=== PATIENT | female | born 1945 | race Caucasian/White ===

== ENCOUNTER → 2019-08-09 10:38 | Outpatient (CLI) | payer MEDICARE, OTHER, SELFPAY ==
--- NOTE | 2019-08-09 | DI.RAD.S_ITS ---
PROCEDURE: XR LUMBAR SPINE 6V W BENDING INDICATIONS: BACK PAIN TECHNIQUE: 7 views of the lumbar spine acquired. COMPARISON: None. FINDINGS: Bones: No fracture or focal osseous destruction. Multilevel degenerative endplate sclerosis and spurring. Diffuse facet arthropathy. Moderate diffuse lumbar disc space narrowing. Severe dextroscoliosis. Severe right hip joint degeneration. Mild left hip degenerative joint disease. No definite pars defects although severely limited in evaluation due to discogenic changes. Grade 1 retrolisthesis of L3 on L4. No evidence of abnormal motion with dynamic flexion and extension lateral views. Soft tissues: Overlying bowel gas pattern is normal. No suspicious soft tissue calcifications. Vascular calcifications IMPRESSION: Suboptimal evaluation due to advanced discogenic changes and scoliosis Dextroscoliosis. Moderate-severe diffuse lumbar spondylosis and facet arthropathy No evidence of abnormal motion with dynamic flexion and extension lateral views. Dictated by: Can George M.D. on 08/09/2019 at 12:04 Approved by: Can George M.D. on 08/09/2019 at 12:35
== END ==
PROVIDERS: PCP Family Medicine; Referring Provider Family Medicine; Visit Provider Family Medicine
DX: M54.9 Dorsalgia, unspecified (principal); M47.816 Spondylosis without myelopathy or radiculopathy, lumbar region; M47.817 Spondylosis without myelopathy or radiculopathy, lumbosacral region; M41.9 Scoliosis, unspecified; M16.0 Bilateral primary osteoarthritis of hip
CPT/HCPCS: 20611; 72114; 99214; J0702

== ENCOUNTER → 2020-03-08 12:11 | Outpatient (CLI) | payer MEDICARE, OTHER, SELFPAY ==
[2020-03-08 12:57] LABS: Add Manual Diff / Slide Review NO; Basophils Absolute Auto 100 /uL (0-100); Basophils Percent Auto 0.7 % (0-2); Eosinophils Absolute Auto 200 /uL (0-450); Eosinophils Percent Auto 2.2 % (2-4); Hematocrit 39.9 % (36-46); Hemoglobin 13.1 g/dL (12.0-16.0); Lymphocytes Absolute Auto 2600 /uL (1100-4500); Lymphocytes Percent Auto 32.1 % (25-40); Mean Corpuscular HGB Conc 32.9 % (30-36); Mean Corpuscular Hemoglobin 31.1 PG (26-34); Mean Corpuscular Volume 94.6 fL (80-100); Monocytes Absolute Auto 600 /uL (0-900); Monocytes Percent Auto 7.2 % (3-14); Neutrophils Absolute Auto 4700 /uL (1500-7000); Neutrophils Percent Auto 57.8 % (50-75); Platelet Count 226 X10^3/uL (150-400); Red Blood Cell Count 4.22 X10^6/uL (4.0-5.2); Red Cell Distribution Width 13.1 % (11.6-14.8); White Blood Cell Count 8.2 X10^3/uL (4.5-11.0)
== END ==
PROVIDERS: PCP Family Medicine; Referring Provider Orthopaedic Surgery; Visit Provider Orthopaedic Surgery
DX: Z01.818 Encounter for other preprocedural examination (principal); Z01.812 Encounter for preprocedural laboratory examination
CPT/HCPCS: 36415; 85025; 93005

== ENCOUNTER → 2020-03-24 13:14 | Outpatient (CLI) | payer MEDICARE, OTHER, SELFPAY ==
[2020-03-25 13:15] LABS: COVID19 Sendout Not Detected (Not Detect)
== END ==
PROVIDERS: PCP Family Medicine; Visit Provider Nurse Practitioner
DX: Z01.812 Encounter for preprocedural laboratory examination (principal)
CPT/HCPCS: 87635

== ENCOUNTER 2020-03-27 10:32 | Day surgery (SDC) | payer MEDICARE, OTHER, SELFPAY ==
[2020-03-21 08:49] VITALS: BMI 23.3
[2020-03-27] VITALS (12 sets, daily range): BP systolic 111–138; BP diastolic 43–84; PULSE 60–83; RESP 10–18; TEMP 35.8–36.6; O2SAT 94–100; BMI 23.7
--- NOTE | 2020-03-27 06:00 | DI.RAD.S_ITS ---
PROCEDURE: XR PELVIS 1-2V COMPARISON: None. INDICATIONS: post op FINDINGS: Views of the right hip demonstrate postoperative changes of total hip replacement. There is no perihardware lucency or other hardware abnormalities. Postoperative soft tissue changes are seen. IMPRESSION: Postoperative changes of total right hip replacement. Dictated by: Eric Beaver M.D. on 03/27/2020 at 15:18 Approved by: Eric Beaver M.D. on 03/27/2020 at 15:19
[2020-03-27] MEDS: ACETAMINOPHEN 325 MG TABLET 975 MG PO (11:01)
[2020-03-27] MEDS: PREGABALIN 75 MG CAPSULE PO (11:01)
[2020-03-27] MEDS: CELECOXIB 200 MG CAPSULE PO (11:01)
[2020-03-27] MEDS: LACTATED RINGERS 1,000 ML 42 ML IV (12:00)
--- NOTE | 2020-03-27 12:43 | PM.PREOP ---
Pre-operative Note COVID-19 COVID-19 status: Negative Result date/Date tested (Pos, Neg/Pending): 03/25/20 Interval Note History & Physical reviewed/Exam performed by Physician: Yes Changes to H&P: No
[2020-03-27] MEDS: CLINDAMYCIN 600 MG/50 ML PIGGYBACK 50 MG IV (13:20)
--- NOTE | 2020-03-27 13:54 | SUR.OPER ---
Lateral on padded OR bed. Gel axillary roll. Arms secured on padded armboard with pillow supporting top arm. Padded hip positioner braces x4 - anterior and posterior chest and pelvis. Additional gel pad used anterior pelvis. Gel pad under bottom leg from knee to foot and secured with tape over sheet.
[2020-03-27] MEDS: KETOROLAC 30 MG/ML VIAL IV (14:04)
[2020-03-27] MEDS: ROPIVACAINE 0.5% PF 5 MG/ML 20ML VIAL 60 ML INJ (14:04)
[2020-03-27] MEDS: MORPHINE 4 MG/ML INJ INJ (14:05)
[2020-03-27] MEDS: TRANEXAMIC ACID 1,000 MG VIAL 2000 MG INJ ×2 (14:05→14:21)
--- NOTE | 2020-03-27 14:48 | PM.OP.1 ---
Operative Date/Time/Diagnoses Date of procedure: 03/27/20 Time of procedure: 14:48 Pre-op diagnosis: Right hip degenerative joint disease Post-op diagnosis: same Procedure & Clinicians Procedure: Right total hip arthroplasty (CPT code 45719 with election assistant) Same procedure as scheduled: Yes Indications: Patient is an 74-year-old female with severe right hip DJD. The patient has pain with activities and at rest, limited ambulation and activity tolerance, difficulties with ADLs, and failure of conservative treatment. We have discussed the nature of condition, treatment options, risks and benefits, and patient elects to proceed with total hip arthroplasty and gives informed consent. Surgeon: Waldemar Goodman Advertising Teacher: Mic Martin Anesthesia Type: General and Spinal Operative Notes Closure Type: primary Specimen(s): none sent Prosthetic devices, grafts, tissues, transplants, or devices: Acetabulum: [employer] R3 acetabular component size 52 mm Femoral component: [employer]hew Anthology stem size 6 with standard offset Femoral head: 36 mm + 0 cobalt chrome Estimated Blood Loss (mL): 100 Blood products transfused: none Procedure in detail: After satisfaction induction of anesthetic, and administration of IV antibiotics, the patient was positioned in the lateral decubitus position with all bony prominences well padded and pelvic position secured using a hip technology program manager positioning device. Right hip and lower extremity prepped and draped in the usual sterile fashion, 1st dose of intravenous tranexamic acid was administered, then a longitudinal incision was created centered over the greater trochanter and carried sharply through the skin and subcutaneous tissues down to the fascia dieudonne which was divided longitudinally and retracted with a Charnley retractor. External rotators visualize, cut, tagged, and retracted posteriorly, then the capsule was cut in a T-type fashion with the corners tagged and retracted. Hip was dislocated and femoral neck cut made according to preoperative templating. Acetabular retractors then placed, and the acetabular labrum and osteophytes were excised. The acetabulum was then sequentially reamed to 51 mm with an excellent circumferential ream and fit with the trial. The trial component was removed and a permanent size 52 mm John and Nephew R3 acetabular component was selected, positioned, and impacted with satisfactory position and fixation achieved. Permanent liner was then inserted with the elevated lip directed posteriorly. Soft tissue then removed off the lateral femoral neck in the lateral neck was entered using a box osteotome. T-handled reamers placed down the canal followed by sequential broaching to 6 with the final broach left in place for trial reduction which demonstrated excellent leg length, range of motion, and stability characteristics with a 36 mm +0 trial ball. The trial and broach were removed, and a permanent size 6 John [employer] Nephew Anthology stem was selected and inserted with excellent position and fixation achieved. Another trial reduction yielded the above characteristics so the trial ball was exchanged for a permanent 32 mm +0 cobalt chrome ball. The hip was irrigated and reduced and excellent leg length range of motion and stability characteristics were achieved and maintained. Periarticular tissues were infiltrated with ropivacaine, morphine, and Toradol. The hip was copiously irrigated, and the capsule repaired with #2 Ethibond, and the piriformis was repaired back to the greater trochanter with the same. Fascia dieudonne closed with interrupted #1 Ethibond sutures, and the subcutaneous tissues were closed in 2 layers of 0 Vicryl and 2 0 Vicryl. Skin was closed with a ZipLine closure and sterile dressings applied. Second dose of tranexamic acid was administered intravenously, and the anesthetic was terminated. Complications: none Post-operative Condition: stable Disposition: PACU Plan for aftercare: Patient will be admitted to the acute care duval, and anticipate discharge on postop day 1 with follow-up in office in 10-14 days. Outpatient physical therapy will be arranged and patient will continue to observe posterior hip precautions. Patient will continue use of postoperative aspirin for DVT prophylaxis postop.
[2020-03-27] MEDS: LACTATED RINGERS 1,000 ML 125 ML IV (17:35)
[2020-03-27] MEDS: ACETAMINOPHEN 325 MG TABLET 650 MG PO (20:13)
[2020-03-27] MEDS: DOCUSATE 100 MG CAPSULE PO (20:13)
[2020-03-27] MEDS: ASPIRIN EC 81 MG TABLET PO (20:13)
[2020-03-27] MEDS: OXYCODONE IR 5 MG TABLET PO (22:26)
[2020-03-28] MEDS: LACTATED RINGERS 1,000 ML 125 ML IV (00:22)
[2020-03-28 03:50] VITALS: BP 139/52; PULSE 64; RESP 18; TEMP 36.6; O2SAT 92
[2020-03-28] MEDS: OXYCODONE IR 5 MG TABLET PO ×3 (04:26→13:21)
[2020-03-28 06:01] LABS: Hematocrit 34.5 % (36-46); Hemoglobin 11.3 g/dL (12.0-16.0)
--- NOTE | 2020-03-28 07:44 | P.PN_ITS ---
Subjective Subjective Date Patient Seen: 03/28/20 Time Patient Seen: 07:44 Interval history: POD #1 s/p R ALONDRA with Dr. Goodman. Her pain is well controlled with Oxycodone. She is voiding. She has not been up with PT yet. Exam Vital Signs (past 8 hours): - 03/28/20 03:50 Temperature 97.9 F Pulse Rate 64 Respiratory Rate 18 Blood Pressure 139/52 L Pulse Oximetry 92 Oxygen Delivery Method CPAP Oxygen Flow Rate 0 Narrative Exam Narrative: Patient lying in bed in NAD. She is alert and oriented X3. Dressing on right hip is CDI. Calves are soft, compressible, and nontender bi laterally. SILT throughout BLEs. DP 2+ and symmetrical. Objective Labs Result Diagrams: 03/28/20 05:44 Labs: Laboratory Results - last 24 hr 03/28/20 05:44 Hgb 11.3 L Hct 34.5 L Assessment & Plan Post-op Postoperative Procedures: Procedures Operation Date: 03/27/20 12:45 Actual Procedures Side Surgeon p Total Hip Arthroplasty Right Waldemar Goodman MD Patient will mobilize with PT today. Continue current pain control. If patient mobilizing safely with adequate pain control she could DC home today.
[2020-03-28] MEDS: ASPIRIN EC 81 MG TABLET PO (09:29)
[2020-03-28] MEDS: DOCUSATE 100 MG CAPSULE PO (09:29)
[2020-03-28] MEDS: ACETAMINOPHEN 325 MG TABLET 650 MG PO ×2 (09:29→13:22)
[2020-03-28 09:30] VITALS: BP 135/58; PULSE 75; RESP 18; TEMP 36.7; O2SAT 97
--- NOTE | 2020-03-28 09:51 | PT.IIE ---
Current Diagnoses Unilateral primary osteoarthritis, right hip (03/27/20) Surgery Performed Operation Date: 03/27/20 12:45 Actual Procedures p Total Hip Arthroplasty(Right) - Waldemar Goodman MD Surgical History (Last Updated 03/21/20 @ 09:20 by Val Thayer RN) H/O total ankle replacement (Acute) History of arthroplasty of left knee (Acute) History of biopsy (Acute) History of section (Acute) Hx of tonsillectomy (Acute) Medical History (Last Updated 03/21/20 @ 09:20 by Val Thayer RN) Degenerative joint disease of right hip (Acute) Facet arthropathy, lumbosacral (Acute) Former smoker (Acute) Hearing impaired (Acute) Scoliosis (Acute) Sleep apnea (Acute) Physical Therapy Inpatient Evaluation/Re-Eval M1 PT/OT-IP Prior Functional Status Start: 03/28/20 11:27 Freq: NEEDED Status: Active Protocol: Document 03/28/20 09:51 AB (Rec: 03/28/20 11:40 AB [id number]) Medical Review Prior Functional Status Medical History Reviewed Yes Communication able to make needs known but with confusion Mobility and Gait stated that she is independent with all mobilities and ambulation wtihout AD indoors but uses a hiking pole for long distance ambulation Prior Functional Level (Other details) most of the info regarding PLOF and home set up were provided by the pt's spouse Social History Household Members none Living Arrangements House Number of Floors (Floors) Two Floors Number of Stairs To Enter/Railing? pt stays on main level of the house has 2 platform steps to enter the house Home Environment Standard Height Toilet,Walk in Shower Home Equipment Front Wheel Walker,Raised Toilet Seat w/Armrests,Shower Seat without Backrest,Hand Held Shower,Grab Bars Near Toilet,Grab Bars In Shower Additional Social History Comment spouse lives in [place] but will stay with pt for 2 weeks and stated that if he has to stay longer, he can make arrangements has hiking poles M2 PT-IP Current Condition Start: 03/28/20 11:27 Freq: NEEDED Status: Active Protocol: Document 03/28/20 09:51 AB (Rec: 03/28/20 11:40 AB [email or web address]) Physical Therapy Current Condition Current Condition Evaluation Date 03/28/20 Treatment Diagnosis s/p R ALONDRA posterior approach; difficulty in walking Onset Date 03/27/20 Precautions Posterior Hip Precautions No Hip Flexion > 90 degrees,No Hip Internal Rotation,No Hip Adduction Weight Bearing Status Weight Bearing Status Weight Bear as Tolerated Allowed Weight Bearing Amount (enter % WBAT RLE or #) (%) M3 PT-IP Subjective Start: 03/28/20 11:27 Freq: NEEDED Status: Active Protocol: Document 03/28/20 09:51 AB (Rec: 03/28/20 11:40 AB [id number]) Subjective Physical Therapy Visit Type Type Initial Evaluation Visit Start Time 09:51 Visit Stop Time 11:00 Total Visit Minutes 69 Number of ELECTRON BEAM OPERATOR Visits 0 Physical Therapy Visit Comments Patient Comments pt is agreeable to do PT. spouse in room with pt. Therapy Pain Assessment Pain When Pain Assessed At Rest Pain Present Pain Present Pain Reported Location right hip Intensity 4 Scale Used Numeric (0 - 10) Pain Management Techniques Modification of Treatment,Re- positioning,Timing of Activity with Medications M4 PT-IP Mobility and Gait Start: 03/28/20 11:27 Freq: NEEDED Status: Active Protocol: Document 03/28/20 09:51 AB (Rec: 03/28/20 11:40 AB [id number]) PT-Bed Mobility Assessment Supine to Sit Supine to Sit Standby Assistance PT-Transfer Assessment Sit to and From Stand Sit to and from Stand Contact Guard Assistance,1 Person Assistance,Use of Upper Extremities Equipment Transfer Assistive Device Gait Belt,Front Wheeled Walker Orthotic/Prosthetic Devices or Brace: No Transfers Transfer Destination Toilet Transfer Technique ambulated using FWW Transfer Ability Level of Assist Contact Guard Assistance,1 Person Assistance,Use of Upper Extremities Comments Mobility Comments educated pt regarding R hip posterior precautions. pt unable to recall and requires max cues with all tasks. spouse stated that he will remind pt. pt completed supine to sit SBA and completed sit to stand from EOB CGA and cues to maintain hip precautions. pt ambulated using FWW to the toilet CGA. required CGA for sit to stand from the toilet and ambulated towards the sink using FWW CGA. pt was able to maintain standing balance CGA during handwashing. ambulated to the chair. caregiver training conducted. educated spouse on how to use safety belt and how to assist pt. spouse was able to put safety belt on. assisted pt with transfers and ambulation using FWW and apppropriately cued pt. pt ambulated towards the stair using FWW CGA with spouse assisting. completed up/down steps using FWW CGA to min A and cues. spouse was able to assist pt. pt ambulated back to her room using FWW CGA and agreed to sit up on chair. positioned on chair. call light and table placed within reach. educated pt and spouse on car transfers. Pt and spouse without any further concerns. Gait Assessment Gait Gait Assistance Required: Contact Guard Assist Distance (Feet) 125 Able to Maintain Weight Bearing Status Yes During Gait Assistive Devices Assistive Device Gait Belt,Front Wheeled Walker Gait Deviations General Gait Pattern Antalgic,Decreased Stride Length,Decreased Feet Clearance Factors Limiting Gait Function Factors Limiting Gait Function Decreased Activity Tolerance, Decreased Strength,Difficulty Following Directions,Limited Range of Motion,Pain,Poor Balance,Poor Safety Awareness Comments Gait Comments pls refer to mobility section for details Stair Climbing Assessment Evaluation Level of Assist On Stairs Contact Guard Assistance, Minimal Assistance Devices Stair Climbing Assistive Devices Front Wheel Walker Technique/Endurance Stair Climbing Direction Ascend and Descend Stair Climbing Technique Step to Step Number of Steps Climbed 1 Query Text: Stair Climbing Set # Repetitions (reps) 2 Comments Stair Climbing Comments pls refer to mobility section for details PT-Balance Assessment Sitting Balance and Reactions Static Sitting Balance Ability Good Dynamic Sitting Balance Ability Good Standing Balance and Reactions Static Standing Balance Ability Fair Dynamic Standing Balance Ability Fair Device Used FWW M5 PT-IP Objective Assessments Start: 03/28/20 11:27 Freq: NEEDED Status: Active Protocol: Document 03/28/20 09:51 AB (Rec: 03/28/20 11:40 AB [email or web address]) Orientation Orientation/Cognition Level of Alertness Alert Orientation Name Safety Awareness Decreased Safety Awareness Memory Description Short Term Impaired,Alf Impaired Gross Range of Motion Lower Extremity ROM Assessment Within Functional Limits Strength Lower Extremity Strength Assessment Right Impaired Hip 3+/5 Knee 4-/5 Coordination Assessment Gross Coordination Gross Coordination WNL Sensation Assessment Sensation Gross Sensation WNL Muscle Tone Muscle Tone WNL Yes M6 PT-IP Treatment Start: 03/28/20 11:27 Freq: NEEDED Status: Active Protocol: Document 03/28/20 09:51 AB (Rec: 03/28/20 11:40 AB [email or web address]) Physical Therapy Treatment Education Education Provided Precautions,Weight Bearing Status,Post-Op Packet,Safety M7 PT-IP Assessment and Plan Start: 03/28/20 11:27 Freq: NEEDED Status: Active Protocol: Document 03/28/20 09:51 AB (Rec: 03/28/20 11:40 AB [id number]) PT Summary Assessment and Plan Potential Rehabilitation Potential Good Status of Condition at Evaluation Stable Summary Impairments Pain,ROM,Strength,Balance, Coordination,Sensation,Tone, Cognition,Bed Mobility, Transfers,Gait,Activity Tolerance Assessment Summary pt requiring CGA to min A with mobility and spouse will assist pt at home. caregiver training conducted and spouse was able to assist and cue pt safely. pt plans to go home later today and stated that she is set up for outpt PT. pt may go home when medically stable. Goals Bed Mobility Goal Independent Transfer Goal Independent,Front Wheeled Walker Gait Goal Standby Assistance,Front Wheel Walker Gait Distance 250 Other Goals up/down 1 step using FWW SBA Days to Meet Goals 5 Frequency of Treatment Frequency Of Treatment Twice a Day Treatment Plan Physical Therapy Treatment Plan Bed Mobility Training,Transfer Training,Gait Training, Therapeutic Exercise,Balance Retraining,Post Op Education, Discharge Planning,Hot or Cold Pack,Neuromuscular Re-ed, Coordination Retraining,Manual Therapy Recommendations To Nursing Amount of Assist Needed 1 Person Assist Discharge Recommendations PT Discharge Recommendations Home with 14/12 Assist, Outpatient PT Transportation Needs at Discharge Private Vehicle
--- NOTE | 2020-03-28 13:19 | PC.NURSE ---
Day shift: Paperwork singed and all questions answered. Pt has all personal belongings. Pt's spouse had scripts filled already. Medicated for pain per MAR just prior to d/c. Taken to car in by NEGRITA Nicolas. Pt and her spouse staying in hotel in [facility] and will go back to [facility] tomorrow. Hip dressing remains CDI.
--- NOTE | 2020-03-28 14:09 | PC.NURSE ---
Day shift: Pt off unit at approx 1355.
--- NOTE | 2020-03-28 15:23 | CM.IDA ---
Initial DCP Assessment Note Pt is a 74 yo female, resident of [facility], now POD#1 from Rt hip surgery w/ Dr Goodman PCP: Dayday Hayward Payer: [facility] Reviewed chart, pt discussed in multidisciplinary rounds this morning. Therapy has cleared pt for return home w/family to assist and pt has planned for home, DC order from Ortho has already been initiated this morning. Met w/patient to introduce role. Patient in good spirits this morning, explains she will be going home w/her to assist, this afternoon. Patient denies needs from this RELATIONSHIP MANAGER. P: DC home w/spouse, outpt PT, no needs from this RELATIONSHIP MANAGER RONAL Contreras
== END 2020-03-28 14:09 | disposition home or self-care (01) ==
LOC: OR 10:36 → AC 10:37
PROVIDERS: PCP Family Medicine; Referring Provider Family Medicine; Visit Provider Orthopaedic Surgery
PROC: 0SR90JZ Replacement of Right Hip Joint with Synthetic Substitute, Open Approach (ICD-10-PCS; CPT 27130; principal; 2020-03-27 12:45)
DX: M16.11 Unilateral primary osteoarthritis, right hip (principal)
CPT/HCPCS: 27130; 36415; 72170; 85014; 85018; 97161; 97530; C1776; J1885; J2250; J2270; J2274; J2704; J3010

== ENCOUNTER → 2020-09-06 11:38 | Outpatient (CLI) | payer MEDICARE, SELFPAY ==
[2020-03-27 16:23] VITALS: BMI 23.7
--- NOTE | 2020-09-06 11:44 | DI.MRI.S_ITS ---
PROCEDURE: MR KNEE RT WO CON INDICATIONS: Unspecified internal derangement of right knee TECHNIQUE: Noncontrast sagittal PD fast spin echo and T2 fast spin echo with fat saturation, sagittal 3-D FLASH with fat saturation; coronal T1 spin echo and PD fast spin echo with fat saturation, and axial PD fast spin echo with fat saturation through the knee. COMPARISON: None. FINDINGS: Image quality: Excellent. Menisci: Oblique tear involving posterior horn of medial meniscus is seen extending to inferior articulating surface. Lateral meniscus is intact. The meniscal root ligaments appear intact. Cruciate ligaments: The anterior and posterior cruciate ligaments appear intact. Medial structures: Moderate grade MCL sprain/partial-thickness tear is seen with significant surrounding edema.. The posterior oblique ligament, semimembranosus tendon insertions, oblique popliteal ligament, and meniscocapsular junction appear intact. Visualized portions of the pes anserinus tendons appear normal. No abnormal bursal fluid. Lateral structures: The lateral collateral ligament, long and short heads of the biceps femoris tendon appear intact. The popliteus tendon appears normal; the popliteofibular ligament appears intact. The posterosuperior and anteroinferior popliteomeniscal fascicles appear intact. The arcuate and fabellofibular ligaments appear intact, on either side of the lateral inferior geniculate artery. Iliotibial band appears normal. Anterior structures: The quadriceps and patellar tendons appear intact. Patellar alignment is normal. No femoral trochlear dysplasia or ventral trochlear prominence. No edema in the infrapatellar fat pad. Bones and cartilage: Mild to moderate tricompartmental osteoarthritis and chondromalacia is seen more prominent in medial femoral tibial compartment. No fracture or dislocation. No marrow edema. Joint space: There is moderate amount of joint fluid. A lobulated popliteal cyst is seen measures up to 1.5 x 1.2 x 5.4 cm in size. Normal appearing synovial plicae are incidentally noted. IMPRESSION: 1. Oblique tear involving posterior horn of medial meniscus extending to inferior articulating surface. No focal lateral meniscal tear. 2. Mild to moderate tricompartmental osteoarthritis and low-grade chondromalacia more prominent in medial femoral tibial compartment. No fracture or dislocation. 3. Small to moderate amount of joint fluid, no gross loose body. Popliteal cyst as above. 4. Cruciate ligaments are intact. Moderate grade MCL sprain/partial-thickness tear. Dictated by: Brian Vargas M.D. on 09/06/2020 at 11:50 Approved by: Brian Vargas M.D. on 09/06/2020 at 11:56
== END ==
PROVIDERS: PCP Family Medicine; Referring Provider Orthopaedic Surgery; Visit Provider Orthopaedic Surgery
DX: S83.241A Other tear of medial meniscus, current injury, right knee, initial encounter (principal); M17.11 Unilateral primary osteoarthritis, right knee; M71.21 Synovial cyst of popliteal space [Baker], right knee; S83.411A Sprain of medial collateral ligament of right knee, initial encounter
CPT/HCPCS: 73721

== ENCOUNTER → 2020-10-04 13:50 | Outpatient (CLI) | payer MEDICARE, SELFPAY ==
[2020-03-27 16:23] VITALS: BMI 23.7
[2020-10-04 21:37] LABS: Clostridium Difficile Tox PCR Negative for C. diff
== END ==
PROVIDERS: PCP Family Medicine; Visit Provider Family Medicine
DX: K52.9 Noninfective gastroenteritis and colitis, unspecified (principal)
CPT/HCPCS: 87045; 87177; 87493; 87899

== ENCOUNTER → 2022-03-23 10:02 | Outpatient (CLI) | payer MEDICARE, SELFPAY ==
[2020-10-31 15:15] VITALS: BMI 23.7
--- NOTE | 2022-03-23 | DI.US.S_ITS ---
LIMITED ULTRASOUND OF LEFT BREAST: 03/23/2022 CLINICAL: Patient returns today to evaluate focal asymmetries in the left breast. Comparison is made to exams dated: 03/23/2022 mammogram - [facility], 02/09/2022 mammogram, 02/13/2020 mammogram, 02/13/2019 mammogram - outside location, and 08/16/2007 mammogram - [facility]. Color flow ultrasound of the left breast retroareolar was performed. No significant abnormalities were seen sonographically in the left breast. IMPRESSION: PROBABLY BENIGN No suspicious sonographic finding in the retroareolar region. Previously questioned distortion is less prominent and is favored to represent superimposition. A follow-up mammogram and an ultrasound in 6 months is recommended to demonstrate stability and exclude an underlying mass. This exam was interpreted at Station ID: [id number]. Electronically Signed By: Chapincito Hernandez M.D. jr/:03/23/2022 14:47:07 letter sent: Followup Recommended Ultrasound BI-RADS: 3 Probably benign
--- NOTE | 2022-03-23 | DI.MRI.S_ITS ---
PROCEDURE: MR HEAD/BRAIN WO CON INDICATIONS: cognitive impairement TECHNIQUE: Non-contrast axial T1 spin echo, axial T2 fast spin echo, sagittal and axial FLAIR, coronal T2 fast spin echo, axial gradient echo, axial diffusion and ADC through the brain. COMPARISON: None. FINDINGS: Image quality: Excellent. CSF spaces: Ventricles appear symmetric in size and shape. Basal cisterns are patent. No extra-axial fluid collections. Brain: No intracranial bleeds or mass effects. There is cerebral volume loss for age. There are periventricular and deep white matter chronic small vessel ischemic changes. Brainstem appears normal. Diffusion-weighted images show no acute ischemic insults. No chronic ischemic insults. Normal intravascular flow voids are present. Skull and face: Calvarial bone marrow is normal in signal. Orbits are normal. Sinuses: Sinuses and mastoids are clear. IMPRESSION: 1. Volume loss small vessel ischemic disease. 2. No acute process. No recent infarct. Dictated by: Hodan Rodriguez M.D. on 03/23/2022 at 11:57 Approved by: Hodan Rodriguez M.D. on 03/23/2022 at 11:58
--- NOTE | 2022-03-23 | DI.MG.S_ITS ---
UNILATERAL LEFT DIGITAL DIAGNOSTIC MAMMOGRAM 3D/2D WITH ADDITIONAL VIEWS: 03/23/2022 CLINICAL: Additional evaluation requested from prior study. Comparison is made to exams dated: 02/09/2022 mammogram, 02/13/2020 mammogram, and 02/13/2019 mammogram - outside location. There are scattered areas of fibroglandular density in the left breast (category b / 25%-50% glandular tissue). Previously questioned architectural distortion in the left breast central to the nipple anterior depth is not seen in additional views, is less prominent and decreased in size. No other significant masses or calcifications are seen in the breast. IMPRESSION: INCOMPLETE: NEEDS ADDITIONAL IMAGING EVALUATION The previously questioned architectural distortion in the left breast most likely is fibroglandular tissue and is indeterminate. An ultrasound was recommended and is pending completion. Based on the Tyrer Cuzick model (a risk assessment model) the patient's lifetime risk is 3.3% and her 10 year risk is 0.0%. According to the ACR, ACS, and NCCN guidelines, an annual breast MRI exam along with mammogram is recommended if the patient's lifetime risk is 20% or greater. This exam was interpreted at Station ID: [id number]. NOTE: For mammograms, a report in lay terms will be sent to the patient. Approximately 15% of breast malignancies will not be visualized mammographically. In the management of a palpable breast mass, a negative mammogram must not discourage biopsy of a clinically suspicious lesion. Electronically Signed By: Chapincito Hernandez M.D. jr/:03/23/2022 14:45:50 ACR BI-RADS Category 0: Incomplete [id number]
== END ==
PROVIDERS: Family Provider Family Medicine; PCP Family Medicine; Referring Provider Family Medicine; Visit Provider Family Medicine
DX: G31.84 Mild cognitive impairment of uncertain or unknown etiology; R92.8 Other abnormal and inconclusive findings on diagnostic imaging of breast
CPT/HCPCS: 70551; 76642; 77065; G0279

== ENCOUNTER → 2022-12-17 12:25 | Outpatient (CLI) | payer MEDICARE, SELFPAY ==
[2020-10-31 15:15] VITALS: BMI 23.7
--- NOTE | 2022-12-17 12:27 | DI.MG.S_ITS ---
BILATERAL DIGITAL DIAGNOSTIC MAMMOGRAM 3D/2D: 12/17/2022 CLINICAL: Short term follow up of the left breast, due for bilateral imaging. Comparison is made to exams dated: 03/23/2022 ultrasound, 03/23/2022 mammogram - [facility], 02/09/2022 mammogram, 02/13/2020 mammogram, and 02/13/2019 mammogram - outside location. Both breasts are heterogeneously dense, which may obscure small masses (category c / 51-75% glandular tissue). There is possible architectural distortion in the left breast central to the nipple anterior depth. This is not seen in additional views. This is less prominent and was not seen on the prior ultrasound. No other significant masses, calcifications, or other findings are seen in either breast. IMPRESSION: PROBABLY BENIGN Possible architectural distortion in the left breast resembles fibroglandular tissue and is stable. This is probably benign. A follow-up mammogram in 12 months is recommended to demonstrate long-term stability. Exam findings were conveyed to the patient. Based on the Tyrer Cuzick model (a risk assessment model) the patient's lifetime risk is 4.4% and her 10 year risk is 0.0%. According to the ACR, ACS, and NCCN guidelines, an annual breast MRI exam along with mammogram is recommended if the patient's lifetime risk is 20% or greater. This exam was interpreted at Station ID: [id number]. NOTE: For mammograms, a report in lay terms will be sent to the patient. Approximately 15% of breast malignancies will not be visualized mammographically. In the management of a palpable breast mass, a negative mammogram must not discourage biopsy of a clinically suspicious lesion. Electronically Signed By: Alejandro Sanderson M.D. [facility] [place]/:12/17/2022 13:32:42 letter sent: Followup Recommended ACR BI-RADS Category 3: Probably benign 3343F
--- NOTE | 2022-12-17 13:09 | DI.DEXA.S_ITS ---
Bone Density Report Name: HENRY BROOKS Age: 77 Sex: Female Ethnicity: White Date of : 1945 Indication: postmenopausal; screening for osteoporosis; Referring Provider: FRANKI GOLDEN Study: Bone densitometry was performed. Exam Date: December 17, 2022 Accession number: [id number] Bone Density: Region BMD T-score Z-score Classification AP Spine(L1-L4) 0.883 -1.5 1.1 Osteopenia Femoral Neck (Left) 0.632 -2.0 0.3 Osteopenia Total Hip (Left) 0.724 -1.8 0.2 Osteopenia Total Forearm (Left) 0.380 -3.7 -0.8 Osteoporosis 1/3 Forearm (Left) 0.464 -3.8 -0.8 Osteoporosis UD Forearm (Left) 0.303 -2.4 -0.3 Osteopenia World Health Organization criteria for BMD impression classify patients as: Normal (T-score at or above -1.0), Osteopenia (T-score between -1.0 and -2.5), or Osteoporosis (T-score at or below -2.5). 10-year Fracture Risk(1): Major Osteoporotic Fracture 14% Hip Fracture 4.1% Reported Risk Factors: [place] (), Neck BMD=0.632, BMI=23.2 (1) FRAX(R) Version 3.08. Fracture probability calculated for an untreated patient. Fracture probability may be lower if the patient has received treatment. Impression: The patient has low bone mass, based on the Left Femoral Neck T-score. The patient has an estimated ten-year risk of hip fracture of 4.1% and an estimated ten-year risk of major fracture of 14%, based on the WHO FRAX algorithm. Discussion: BONE DENSITY IS LOW AT ONE OR MORE SKELETAL SITES. THE PATIENT'S BMD AND CLINICAL RISK FACTORS CONTRIBUTE TO THIS PATIENT'S INCREASED RISK OF FRACTURE. This patient's lowest T-score is low at one or more skeletal sites. It meets the World Health Organization's (WHO) criteria for ?low bone mass? (T-score between -1.0 and -2.5). The patient's 10-year risk of hip fracture as calculated by FRAX exceeds the threshold where pharmacological therapy is recommended by the National Osteoporosis Foundation (NOF). However, all treatment decisions require clinical judgment and consideration of individual patient factors, including patient preferences, comorbidities, previous drug use, risk factors not captured in the FRAX model (e.g., frailty, falls, vitamin D deficiency, increased bone turnover, interval significant decline in bone density) and possible under or overestimation of fracture risk by FRAX. The patient should follow a healthful lifestyle (good nutrition with adequate calcium and vitamin D, and appropriate weight-bearing exercise). Follow-Up: Consider a repeat BMD and Vertebral Fracture Assessment (VFA) exam in 2 years or sooner if medically necessary, to reassess this patient's status. Reported by: ERIC MORAN M.D. on 12/17/2022 1:48:00 PM.
== END ==
PROVIDERS: Family Provider Family Medicine; PCP Family Medicine; Referring Provider Family Medicine; Visit Provider Family Medicine
DX: R92.8 Other abnormal and inconclusive findings on diagnostic imaging of breast (principal); M85.852 Other specified disorders of bone density and structure, left thigh; Z78.0 Asymptomatic menopausal state; Z13.820 Encounter for screening for osteoporosis
CPT/HCPCS: 77066; 77080; 77081; G0279

== ENCOUNTER → 2023-02-22 15:41 | Outpatient (CLI) | payer MEDICARE, SELFPAY ==
[2020-10-31 15:15] VITALS: BMI 23.7
--- NOTE | 2023-02-22 | DI.MRI.S_ITS ---
PROCEDURE: MR HAND LT WO CON INDICATIONS: Sprain of metacarpophalangeal joint of left thumb, initial e TECHNIQUE: Noncontrast oblique coronal T1 spin echo and T2 fast spin echo with fat saturation, axial and sagittal T2 fast spin echo with fat saturation, through the thumb. COMPARISON: None. FINDINGS: Image quality: Excellent. Bones: The bones are normally aligned, without marrow contusions or fractures. Osteoarthritic changes are noted throughout left hand and wrist joints more notably involving 1st CMC joint and 1st MCP joint. Nonspecific subcortical cystic changes are noted involving 1st proximal phalangeal head. No intra-osseous lesions. First carpometacarpal joint: On sagittal images, the dorsal radial ligament and posterior oblique ligament appear intact. The intermetacarpal ligament between the 1st and 2nd metacarpal bases also appears intact. On the volar aspect, the deep and superficial layers of the anterior oblique ligament appear intact. First metacarpophalangeal joint: The proper and accessory components of the radial collateral ligament appears thickened with intrasubstance T2 hyperintense signal along with overlying fibers of the abductor pollicis brevis tendon. There is ruptured ulnar collateral ligaments of the 1st MCP joint at its distal insertion with proximal retraction of torn ligament fibers. The overlying fibers of the adductor pollicis muscle are grossly intact. The aponeurosis of the adductor pollicis muscle also appears intact. The volar plate appears intact on sagittal images, situated between the radial and ulnar sesamoids. Thenar muscles: The superficial abductor pollicis longus muscle appears normal, with tendon inserting on the radial base of the first proximal phalanx. The opponens pollicis muscle also appears normal, inserting on the first metacarpal shaft. Mild edema involving the adductor pollicis brevis muscle is seen at the level of 1st CMC joint and 1st metacarpal shaft, with tendon inserting on the radial sesamoid and first proximal phalanx. The oblique and transverse heads of the adductor pollicis muscle appear normal, inserting on the ulnar sesamoid and proximal phalanx as part of the adductor aponeurosis. Flexor pollicis longus tendon: Tendon fibers appear intact, coursing between the thenar eminence muscles and the adductor pollicis muscle, and inserting on the volar base of the distal phalanx. The first annular clayton at the level of the first MCP joint appears intact, intimate with the sesamoids. The second annular clayton at the level of interphalangeal joint also appears intact. The oblique annular clayton between the 1st and 2nd annular pulleys appears intact, with ulnar proximal attachment intimate with the adductor aponeurosis. The variable annular clayton also appears intact between the first annular and oblique annular pulleys. Extensor tendons: The extensor pollicis brevis tendon appears intact, coursing radial to the extensor pollicis longus tendon and inserting on the dorsal base of the proximal phalanx, blending with the dorsal plate of the first MCP joint. The extensor pollicis longus tendon appears intact as it inserts on the dorsal base of the distal phalanx. The sagittal band at the level of the first MCP joint appears intact. The abductor pollicis longus tendon slips appear intact at the radial aspect of the proximal phalanx, proximal to the abductor pollicis brevis tendon insertion. Miscellaneous: No ganglion cysts. IMPRESSION: 1. Finding is suggestive of ruptured ulnar collateral ligaments of the 1st MCP joint at their distal insertions with proximally retracted torn ligament fibers deep to the intact aponeurosis of adductor pollicis muscle without evidence of Stener lesion. Sprain/low-grade partial-thickness tear involving proximal radial collateral ligaments of 1st MCP joint is also seen. 2. Mild edema involving adductor pollicis brevis muscle at the level of 1st metacarpal shaft and 1st CMC joint. No other muscle or tendon signal abnormalities are seen. 3. Osteoarthritic changes throughout left thumb. No fracture or dislocation. No suspicious bony lesions. Dictated by: Brian Vargas M.D. on 02/23/2023 at 12:16 Approved by: Brian Vargas M.D. on 02/23/2023 at 12:27
== END ==
PROVIDERS: Family Provider Family Medicine; PCP Family Medicine; Referring Provider Orthopaedic Surgery; Visit Provider Orthopaedic Surgery
DX: S63.642A Sprain of metacarpophalangeal joint of left thumb, initial encounter (principal); X58.XXXA Exposure to other specified factors, initial encounter
CPT/HCPCS: 73218

== ENCOUNTER 2023-04-29 09:29 | Day surgery (SDC) | payer MEDICARE, SELFPAY ==
[2020-10-31 15:15] VITALS: BMI 23.7
[2023-04-28 12:06] VITALS: BMI 24.5
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
[2023-04-29 10:07] VITALS: BMI 24.5
[2023-04-29] MEDS: LACTATED RINGERS 1,000 ML 42 ML IV (10:26)
[2023-04-29] MEDS: CEFAZOLIN 2 GM/100 ML PREMIX 100 ML IV (10:35)
[2023-04-29] MEDS: ACETAMINOPHEN IV 1,000 MG/100 ML VIAL 400 MG IV (10:40)
--- NOTE | 2023-04-29 10:54 | SUR.OPER ---
Supine on padded OR bed, head on pillow, arms secured on padded arm boards at <90 degrees abduction, legs uncrossed, safety belt at thigh, tape over blanket over lower legs.
[2023-04-29] MEDS: BUPIVACAINE 0.5% (PF) 30 ML, EPINEPHrine 0.15 MG INJ (11:04)
[2023-04-29 11:40] VITALS: BP 123/47; PULSE 80; RESP 16; TEMP 36.3; O2SAT 99
[2023-04-29 11:45] VITALS: BP 117/53; PULSE 73; RESP 12; O2SAT 100
--- NOTE | 2023-04-29 11:48 | PM.OP.1 ---
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 Some early stage arthritic changes to the MCP joint Closure Type: primary Estimated Blood Loss (mL): 0 Tourniquet time (min): 42 Procedure in detail: On date of Service, patient was met in the holding area where his operative site was signed and witnessed by the OR staff. The surgery is once again discussed with the patient in remaining questions or concerns he had were answered to his full satisfaction. Patient was taken back to the operating theater and placed on the operating table in a supine position. Great care was taken to ensure that all bony prominences were appropriately padded. Well-padded tourniquet was placed up along the upper extremity and a time-out was performed verifying patient's name, procedure and operative site. The upper extremity was prepped and draped in the normal sterile fashion. And Esmarch was used to exsanguinate the limb and the tourniquet was turned up to 250 mmHg. Curvilinear incision was made centered over the ulnar aspect of the MCP joint. A 15 blade was used incise the skin and fascial tissue. Bipolar electrocautery was used to achieve hemostasis. Deep knife was then used to continued sharp dissection and the aponeurosis was split giving us a good visualization of the ulnar collateral ligament. Complete rupture of the ligament. Tissue did not look healthy enough for a direct repair. Due to this fact a small strip of palmaris longus was retrieved from the volar aspect of the wrist. Two guidewires were placed 1 in the proximal phalanx 1 in the metacarpal. Two drill holes were made 1 in the proximal phalanx 1 in the metacarpal. Suture material and the tendon graft was tenodesed 1st in the metacarpal brought across the joint and then tenodesed in the proximal phalanx under tension. This help secure the ulnar collateral ligament tissue onto the proximal phalanx as well as provide additional support to the ligament. This got rid of the excess laxity to the MCP joint and help stabilize the joint. The wound was then copiously irrigated. Aponeurosis was closed in the rest of the wound was closed in a layered fashion. The hand was cleaned, dried, and dressed and patient was placed into a splint. Complications: none Post-operative Condition: stable Disposition: same day surgery Plan for aftercare: Patient will follow our postoperative protocol for ulnar collateral ligament reconstruction.
[2023-04-29 11:50] VITALS: BP 110/45; PULSE 70; RESP 12; O2SAT 97
[2023-04-29 12:00] VITALS: BP 118/53; PULSE 65; RESP 12; O2SAT 98
[2023-04-29 12:15] VITALS: BP 127/58; PULSE 71; RESP 12; O2SAT 99
[2023-04-29 12:27] VITALS: BP 119/55; PULSE 68; RESP 12; TEMP 36.4; O2SAT 100
== END 2023-04-29 12:50 | disposition home or self-care (01) ==
PROVIDERS: Family Provider Family Medicine; PCP Family Medicine; Referring Provider Orthopaedic Surgery; Visit Provider Orthopaedic Surgery
PROC: (CPT 26540; principal; 2023-04-29 10:45)
DX: S63.642A Sprain of metacarpophalangeal joint of left thumb, initial encounter (principal); X50.9XXA Other and unspecified overexertion or strenuous movements or postures, initial encounter
CPT/HCPCS: 26540; C1713; J0131; J0171; J0690; J1100; J1885; J2405; J3010